=== PATIENT | male | born 1985 | race Caucasian/White ===

== ENCOUNTER 2017-09-16 20:39 | Emergency (ER) | payer BC ==
[2017-09-16 20:55] VITALS: RESP 18
[2017-09-16 21:26] LABS: Basophils # (A) 0.1 k/uL (0-0.2); Basophils % (A) 1 %; Eosinophils # (A) 0.1 k/uL (0-0.7); Eosinophils % (A) 2 %; HCT 46.2 % (39.0-53.0); HGB 16.4 gm/dL (13.0-17.5); Lymphocytes % (A) 23 %; MCH 31.2 pg (25.0-35.0); MCHC 35.5 g/dL (31.0-37.0); MCV 87.8 fL (80.0-100.0); Mean Platelet Volume 7.6; Monocytes # (A) 0.4 k/uL (0-1.0); Monocytes % (A) 5 %; Neutrophils # (A) 5.9 k/uL (1.3-7.7); Neutrophils % (A) 68 %; Platelet Count 286 k/uL (150-450); RBC 5.26 m/uL (4.30-5.90); RDW 12.6 % (11.5-15.5); WBC 8.6 k/uL (3.8-10.6)
[2017-09-16 21:36] LABS: Anion Gap 20 mmol/L; Blood Urea Nitrogen 11 mg/dL (9-20); Calcium 10.4 mg/dL (8.4-10.2); Carbon Dioxide 21 mmol/L (22-30); Chloride 105 mmol/L (98-107); Creatine Kinase 361 U/L (55-170); Glucose 84 mg/dL (74-99); Potassium 4.1 mmol/L (3.5-5.1); Sodium 146 mmol/L (137-145)
--- NOTE | 2017-09-16 21:58 | ED ---
General Adult HPI - General Chief complaint: Weakness Stated complaint: Weakness in hands Time Seen by Provider: 09/16/17 20:58 Source: patient Mode of arrival: ambulatory Limitations: no limitations - History of Present Illness Initial comments: 31-year-old male presenting after an episode of hand cramping and slurred speech. Patient states he was at a constitution party when he went outside. He then had diffuse hand cramping and felt like he was having a difficult time speaking. Friends came outside and were giving him water. EMS was called. He states when he got into the ambulance his symptoms completely resolved. Patient states he went to gym this morning, drank pre-workout, had not eaten anything, and then drink a large amount of alcohol at a constitution party. He denies any personal history of stroke. Denies any personal history of any medical illnesses. Denies blood thinner use. Denies drug use. Denies history of seizures. - Related Data Home Medications Medication Instructions Recorded Confirmed Atorvastatin [Lipitor] 20 mg PO HS 02/16/14 02/16/14 Fenofibrate 160 mg PO DAILY 02/16/14 02/16/14 Omeprazole [PriLOSEC] 20 mg PO AC-BRKFST 02/16/14 02/16/14 amLODIPine/ATORVASTATIN 1 each PO 02/16/14 02/16/14 [Amlodipine-Atorvast 5-20 mg] Allergies Allergy/AdvReac Type Severity Reaction Status Date / Time No Known Allergies Allergy Verified 09/16/17 20:54 Review of Systems ROS Statement: Those systems with pertinent positive or pertinent negative responses have been documented in the HPI. Review of Systems Constitutional: Denies fever, chills Eyes: Denies change in vision, Denies pain Ears, nose, mouth, throat: Denies headaches, Denies sore throat Cardiovascular: Denies chest pain. Denies palpitations Respiratory: Denies shortness of breath, Denies cough Gastrointestinal: Denies abdominal pain. Denies nausea, vomiting, diarrhea. Genitourinary: Denies hematuria, Denies infections Musculoskeletal: Denies pain, Denies swelling. Positive hand cramping. Integumentary: Denies rash Neurological: Denies headache, focal weakness, focal numbness. Positive speech. Psychiatric: Denies anxiety, Denies depression Hematologic/Lymphatic: Denies easy bleeding or bruising ROS Other: All systems not noted in ROS Statement are negative. Past Medical History Past Medical History: GERD/Reflux, Hypertension History of Any Multi-Drug Resistant Organisms: None Reported Past Surgical History: No Surgical Hx Reported Past Psychological History: No Psychological Hx Reported Smoking Status: Current some day smoker Past Alcohol Use History: Occasional Past Drug Use History: None Reported General Exam - General Exam Comments Initial Comments: General: Awake, alert, No acute Distress HENT: Normocephalic. Atraumatic Eyes: PERRL. EOMI. No scleral icterus. No injected conjunctiva Neck: Full ROM Chest/Lungs: Clear to auscultation bilaterally. No wheezing, rhonchi, or rales Cardiac: Regular rate, rhythm. No murmurs or rubs Abdomen/GI: [Soft, nontender, nondistended. No rebound, guarding, or rigidity. Musculoskeletal: Full ROM Skin: Warm, dry, intact Neurologic: A/Ox3, no weakness, no sensory deficit, no abnormal gait, no coordination deficit Limitations: no limitations Course Vital Signs 09/16/17 20:52 Temperature 97.3 F L Pulse Rate 76 Respiratory 18 Rate Blood Pressure 120/60 O2 Sat by Pulse 98 Oximetry EKG Findings - EKG Comments: EKG Findings:: EKG shows normal sinus rhythm at a rate of 91 bpm. TN interval is 122 ms, QRS duration 102 ms, QT/QTC 370/455 ms. No dysrhythmias, ST elevation or depression. Medical Decision Making - Medical Decision Making 31-year-old male presenting after an episode of hand cramping and slurred speech. On initial exam the patient is awake, alert, no acute distress. VSS. Patient is currently asymptomatic. He has no neurologic deficit. He appears chronically sober. Patient's laboratory workup revealed a mildly elevated CPK, hypercalcemia, and hyponatremia consistent with dehydration. He did not have any return of symptoms are department. Discussed in length with the patient and his admission for TIA versus seizure workup. At this time they declined admission. Objective the patient is to return the ER if his symptoms return. Instructed them to follow up with their family physician on Monday. - Lab Data Result diagrams: 09/16/17 21:14 09/16/17 21:14 Lab Results 09/16/17 09/16/17 Range/Units 21:14 21:14 WBC 8.6 (3.8-10.6) k/uL RBC 5.26 (4.30-5.90) m/uL Hgb 16.4 (13.0-17.5) gm/dL Hct 46.2 (39.0-53.0) % MCV 87.8 (80.0-100.0) fL MCH 31.2 (25.0-35.0) pg MCHC 35.5 (31.0-37.0) g/dL RDW 12.6 (11.5-15.5) % Plt Count 286 (150-450) k/uL Neutrophils % 68 % Lymphocytes % 23 % Monocytes % 5 % Eosinophils % 2 % Basophils % 1 % Neutrophils # 5.9 (1.3-7.7) k/uL Lymphocytes # 2.0 (1.0-4.8) k/uL Monocytes # 0.4 (0-1.0) k/uL Eosinophils # 0.1 (0-0.7) k/uL Basophils # 0.1 (0-0.2) k/uL Sodium 146 H (137-145) mmol/L Potassium 4.1 (3.5-5.1) mmol/L Chloride 105 (98-107) mmol/L Carbon Dioxide 21 L (22-30) mmol/L Anion Gap 20 mmol/L BUN 11 (9-20) mg/dL Creatinine 1.00 (0.66-1.25) mg/dL Est GFR (CKD-EPI)AfAm >90 (>60 ml/min/1.73 sqM) Est GFR (CKD-EPI)NonAf >90 (>60 ml/min/1.73 sqM) Glucose 84 (74-99) mg/dL Calcium 10.4 H (8.4-10.2) mg/dL Magnesium 2.0 (1.6-2.3) mg/dL Creatine Kinase 361 H (55-170) U/L Disposition Clinical Impression: Dehydration with hypernatremia, Hypercalcemia, Cramping of hands, Slurred speech Disposition: HOME SELF-CARE Condition: Good Is patient prescribed a controlled substance at d/c from ED?: No Referrals: Lan Jones MD [Primary Care Provider] - 1-2 days
[2017-09-16 22:14] VITALS: BP 121/68; PULSE 86; TEMP 97.7
== END 2017-09-16 22:13 | disposition home or self-care (01) ==
LOC: EC 20:39
DX: E87.0 Hyperosmolality and hypernatremia (principal); E86.0 Dehydration; E83.52 Hypercalcemia; R25.2 Cramp and spasm; R47.81 Slurred speech; K21.9 Gastro-esophageal reflux disease without esophagitis; I10 Essential (primary) hypertension; F17.200 Nicotine dependence, unspecified, uncomplicated; Z79.899 Other long term (current) drug therapy
CPT/HCPCS: 36415; 80048; 82550; 83735; 85025; 93005; 99285

== ENCOUNTER → 2017-10-17 | Outpatient (CLI) | payer BC ==
--- NOTE | 2017-10-17 16:06 | CT ---
EXAMINATION TYPE: CT sinus wo con DATE OF EXAM: 10/17/2017 COMPARISON: NONE HISTORY: Near syncope, fluid in ears per patient. Chronic sinusitis per order CT DLP: 612 mGycm. Automated Exposure Control for Dose Reduction was Utilized. TECHNIQUE: CT scan of the sinuses is performed without contrast, axial images are obtained, coronal r eformatted images are also reviewed. FINDINGS: There is mild mucosal thickening in inferior bilateral maxillary sinuses. There is addition al 1.6 cm mucous retention cyst or polyp in the anterior inferior right maxillary sinus. Remainder pa ranasal sinuses are clear without suspicious opacification or air-fluid levels. The ostiomeatal compl ex is patent bilaterally on the coronal images. Visualized portion of mastoid air cells show no abnormal opacification but are noted incompletely mil ged. The globes are intact bilaterally. Visualized portion of brain parenchyma is unremarkable. IMPRESSION: Mild Chronic maxillary sinus disease bilaterally. No acute sinusitis noted.
== END | disposition home or self-care (01) ==
LOC: RADCTMAIN 15:42
PROVIDERS: ATTEND Family Medicine
DX: J32.0 Chronic maxillary sinusitis (principal)
CPT/HCPCS: 70486

== ENCOUNTER 2023-03-21 12:37 | Day surgery (SDC) | payer BC ==
[2023-03-20 08:44] VITALS: BMI 33.0
[~2023-03-21 12:37] MED LIST: LACTATED RINGERS 1,000 ML IV SCH; LIDOCAINE 1% (10MG/ML) FOR IV START INTRADERMA PRN
[2023-03-21] MEDS ORDERED: LACTATED RINGERS 1,000 ML IV ONE (12:55)
[2023-03-21 13:00] VITALS: TEMP 98
[2023-03-21] MEDS ORDERED: LIDOCAINE 1% INJ 10MG/ML (20 ML MDV) ONE (13:26)
[2023-03-21] MEDS ORDERED: PROPOFOL 10 MG/ML 20 ML VIAL IV ONE (13:26)
--- NOTE | 2023-03-21 13:32 | P.GSHP ---
History of Present Illness H&P Date: 03/21/23 Chief Complaint: GERD 37-year-old male here for EGD. Patient with chronic reflux. Last EGD 5 years ago. Patient on omeprazole twice daily. No dysphagia. Past Medical History Past Medical History: GERD/Reflux, Hyperlipidemia, Hypertension History of Any Multi-Drug Resistant Organisms: None Reported Past Surgical History: No Surgical Hx Reported Additional Past Surgical History / Comment(s): egd Past Anesthesia/Blood Transfusion Reactions: No Reported Reaction Additional Past Anesthesia/Blood Transfusion Reaction / Comment(s): no blood transfusion Smoking Status: Vaper - Past Family History Mother Family Medical History: Cancer Additional Family Medical History / Comment(s): breast cancer melanoma Medications and Allergies Home Medications Medication Instructions Recorded Confirmed Type Atorvastatin [Lipitor] 20 mg PO HS 02/16/14 03/20/23 History Omeprazole [PriLOSEC] 20 mg PO AC-BRKFST 02/16/14 03/20/23 History amLODIPine/ATORVASTATIN 1 each PO DAILY 02/16/14 03/20/23 History [Amlodipine-Atorvast 5-20 mg] Semaglutide [Wegovy] 1.7 mg SQ 03/20/23 History Allergies Allergy/AdvReac Type Severity Reaction Status Date / Time No Known Allergies Allergy Verified 03/20/23 08:31 Surgical - Exam Vital Signs Temp Pulse Resp BP Pulse Ox 98 F 86 18 130/80 98 03/21/23 12:54 03/21/23 12:54 03/21/23 12:54 03/21/23 12:54 03/21/23 12:54 Physical exam: General: Well-developed, well-nourished HEENT: Normocephalic, sclerae nonicteric Abdomen: Nontender, nondistended Extremities: No edema Neuro: Alert and oriented Assessment and Plan (1) GERD (gastroesophageal reflux disease) Narrative/Plan: Will proceed with upper endoscopy. Current Visit: Yes Status: Acute Code(s): K21.9 - GASTRO-ESOPHAGEAL REFLUX DISEASE WITHOUT ESOPHAGITIS SNOMED Code(s): 987586963
--- NOTE | 2023-03-21 13:38 | P.PCN ---
Date of Procedure: 03/21/23 Procedure(s) Performed: Preoperative Dx: GERD Postoperative Dx: Mild gastritis, hiatal hernia, short segment Mauricio's esophagus Procedure: EGD with Bx Anesthesia: Sedation Endoscopist: Dr. Bello Specimens: Antrum, Mauricio's Endoscopic Procedure: The patient was on the endoscopy table in the left decubitus position. The Olympus gastroscope was inserted into the oropharynx and passed under direct visualization to the region of the third portion of the duodenum. From that point the scope was slowly withdrawn inspecting all surfaces carefully. There were no neoplastic inflammatory or polypoid lesions throughout the duodenum. The pylorus was widely patent. The stomach was carefully inspected. There was mild gastritis present. A biopsy of the antrum took place to rule out H. pylori. Retroflexion revealed a small to moderate sized hiatal hernia. The GE junction was present 3 cm above the diaphragm. At the GE junction there was a small salmon-colored columns of mucosa one measuring about 1.5 cm in length. This was labeled short segment Mauricio's esophagus. This was free of inflammation. No ulcerations or nodules were seen. The remainder the esophagus appear normal. The patient was then taken to the recovery room in stable condition per anesthesia guidelines. Recommendations: Await biopsy results. Continue antiacids. Repeat EGD 3-5 years.
[2023-03-21 14:32] VITALS: BP 133/82; PULSE 97; RESP 16
== END 2023-03-21 14:25 | disposition home or self-care (01) ==
LOC: ORWHC2ENDO 12:37
PROVIDERS: ATTEND Surgery
DX: K29.70 Gastritis, unspecified, without bleeding (principal); K21.00 Gastro-esophageal reflux disease with esophagitis, without bleeding; K44.9 Diaphragmatic hernia without obstruction or gangrene; K22.70 Barrett's esophagus without dysplasia; I10 Essential (primary) hypertension; E78.5 Hyperlipidemia, unspecified; F17.200 Nicotine dependence, unspecified, uncomplicated; Z80.3 Family history of malignant neoplasm of breast; Z79.899 Other long term (current) drug therapy
CPT/HCPCS: 88305; 88342; 43239; J2001; J2704